=== PATIENT | female | born 1975 | race Caucasian/White ===

== ENCOUNTER 2021-03-13 14:06 | Emergency (ER) | payer OTHER ==
[~2021-03-13] VITALS: Ht 175.3 cm; Wt 90.9 kg
--- NOTE | 2021-03-13 15:35 | REP ---
INDICATION: CVA - Nursing interventions must not delay CT. COMPARISON: None. TECHNIQUE: CT brain performed in the axial plane. Coronal reconstruction images are performed. FINDINGS: The ventricles are normal in size and position.. There is no midline shift or mass effect. Vitale-white differentiation is well maintained. There is no acute intracranial hemorrhage or extra-axial fluid collection. However, there is a relatively moderate amount of subarachnoid air anteriorly throughout the interhemispheric fissure, in the suprasellar cistern, at the anterior base of the brain and left frontal region. Bone window examination is unremarkable. The visualized mastoid air cells and paranasal sinuses are clear. IMPRESSION: Moderate amount of anterior pneumocephalus in a subarachnoid location, reportedly secondary to epidural injection. No other acute finding. Incidental Findings: Anterior pneumocephalus in a subarachnoid location. The critical information above was relayed directly by me by telephone to ernie vitale on 03/13/2021 at 3:27 pm with readback verification. <Electronically signed by Andry Vitale > 03/13/21 [id number]
[2021-03-13 15:52] LABS: BASO % 0.1 % (0.0-1.0); EOS % 0.1 % (0.0-3.0); HEMATOCRIT 43.5 % (36.0-47.0); HEMOGLOBIN 14.7 g/dl (12.0-15.5); LYMPH # 0.5 10^3/uL (1.5-5.0); LYMPH % 5.1 % (24.0-44.0); MEAN CORPUSCULAR HEMOGLOBIN 30.8 pg (27.0-33.0); MEAN CORPUSCULAR HGB CONC 33.8 g/dl (32.0-36.5); MEAN CORPUSCULAR VOLUME 91.2 fl (80.0-96.0); MONO # 0.1 10^3/uL (0.0-0.8); MONO % 0.9 % (2.0-8.0); NEUTROPHILS # 8.9 10^3/uL (1.5-8.5); NEUTROPHILS % 93.3 % (36.0-66.0); PLATELET COUNT, AUTOMATED 265 10^3/uL (150-450); RED BLOOD COUNT 4.77 10^6/uL (4.00-5.40); WHITE BLOOD COUNT 9.5 10^3/uL (4.0-10.0)
[2021-03-13] MEDS ORDERED: PAME10CA PO (15:54)
[2021-03-13] MEDS ORDERED: XANA0.5T PO (15:54)
[2021-03-13 16:17] LABS: HCG, SERUM QUALITATIVE NEGATIVE (NEGATIVE)
[2021-03-13 16:22] LABS: CK-MB VALUE MASS < 1.0 NG/ML (<3.6); CPK CREATINE PHOSPHOKINASE 134 U/L (26-192); MB/CK RELATIVE INDEX 0.75 (< OR =4); TROPONIN I < 0.02 NG/ML (< 0.10)
--- NOTE | 2021-03-13 16:41 | REP ---
INDICATION: CVA. COMPARISON: None. TECHNIQUE: Single portable AP view of the chest was performed. FINDINGS: There is no acute infiltrate or pulmonary edema. Lungs are clear. The heart is not significantly enlarged. The mediastinal silhouette is unremarkable. The visualized osseous structures are intact.A stimulator device projects over the right hemithorax with a lead seen in the region of the lower cervical spine. IMPRESSION: No acute pulmonary disease. <Electronically signed by Andry Vitale > 03/13/21 [id number]
[2021-03-13] MEDS ORDERED: ONDANSETRON 4MG/2ML VIAL IV ONE (18:05)
[2021-03-13] MEDS ORDERED: fentaNYL 100 MCG/2 ML INJECTION (J3010) IV ONE (18:05)
--- NOTE | 2021-03-13 18:31 | REPVR ---
PROCEDURE INFORMATION: Exam: CT Cervical Spine Without Contrast Exam date and time: 03/13/2021 6:07 PM Age: 45 years old Clinical indication: Weakness; Prior surgery; Additional info: R/O hematoma, epidural injections today TECHNIQUE: Imaging protocol: Computed tomography images of the cervical spine without contrast. Radiation optimization: All CT scans at this facility use at least one of these dose optimization techniques: automated exposure control; mA and/or kV adjustment per patient size (includes targeted exams where dose is matched to clinical indication); or iterative reconstruction. COMPARISON: CT Head without contrast 03/13/2021 2:47 PM FINDINGS: Tubes, catheters and devices: Spinal stimulator leads demonstrated. Bones/joints: No acute fracture. Normal alignment. Discs/Spinal canal/Neural foramina: No significant disc protrusion. No severe spinal canal stenosis. No significant neural foraminal narrowing. Epidural space: Small locule of epidural gas demonstrate the level of the brainstem on the right likely postprocedural. No evidence of an epidural hematoma. Lungs: Lung apices are normal. Soft tissues: Air demonstrated in the posterior paraspinal soft tissues on the right likely postprocedural. Clinical correlation to exclude infection. IMPRESSION: 1. Air demonstrated in the posterior paraspinal soft tissues on the right likely postprocedural. Clinical correlation to exclude infection. 2. Small locule of epidural gas demonstrate the level of the brainstem on the right likely postprocedural. 3. No evidence of an epidural hematoma. 4. No fractures. Electronically signed by: Devyn Fitch On 03/13/2021 18:31:42 PM
--- NOTE | 2021-03-13 19:59 | ECGEPIP ---
[facility] - ED Test Date: 2021-03-13 Pat Name: EBENEZER BOLAÑOS Department: Room: - Gender: Female [employer] Technician: FARIHA : 1975 Requested By: ALEX Carpio PA-C Order Number: [id number] Reading MD: Ngoc Corrales Measurements Intervals [place] Rate: 61 P: 61 VA: 176 QRS: -14 QRSD: 88 T: 21 QT: 420 QTc: 422 Interpretive Statements Normal sinus rhythm Possible Left atrial enlargement Minimal voltage criteria for LVH, may be normal variant ( [place] product ) No prior Electronically Signed on 03-13-2021 19:59:43 EDT by Ngoc Corrales
[2021-03-13 20:30] LABS: RSV AMPLIFICATION NEGATIVE (NEGATIVE)
[2021-03-13 21:38] VITALS: BP 149/66
== END 2021-03-13 21:50 | disposition short-term general hospital (02) ==
LOC: EDBD 14:06 → M ED 14:06
DX: G81.91 Hemiplegia, unspecified affecting right dominant side (principal); G93.89 Other specified disorders of brain; F41.9 Anxiety disorder, unspecified; Z79.899 Other long term (current) drug therapy
CPT/HCPCS: 70450; 71045; 72125; 80047; 82550; 82553; 84484; 84702; 84703; 85025; 85730; 87631; 93005; 93041; 94760; 96361; 96374; 96375; 99285; J2405; J3010

== ENCOUNTER 2024-11-19 08:40 | Day surgery (SDC) | payer OTHER ==
[~2024-11-19] VITALS: Ht 165.1 cm; Wt 91.2 kg
[~2024-11-19 08:40] MED LIST: MIDAZOLAM INJ 2MG/2ML VIAL As Ordered ONE; PAME10CA PO; PHENYLEPHRINE 10% OPHTH SOL 5ML OS PRN; PROBCAP14 PO; THERTAB52 PO; XANA0.5T PO; fentaNYL 100 MCG/2 ML INJECTION As Ordered ONE
[2024-11-19] MEDS: CYCLOPENTOLATE 1% OPHTH SOLN 2ML BTL OS SCH (09:37)
[2024-11-19] MEDS: OFLOXACIN 0.3 % (OCUFLOX) OPTH SOL 5ML OS ONE (09:37)
[2024-11-19] MEDS: LIDOCAINE 3.5 % 1ML OPHTH TOPICAL GEL OU ONE (09:37)
[2024-11-19] MEDS: PHENYLEPHRINE 2.5% OPHTH SOL 2ML OS SCH (09:38)
[2024-11-19] MEDS: TROPICAMIDE 1% OPHTH SOLN 15ML OS SCH (09:38)
[2024-11-19] MEDS: CEFUROXIME 1MG/0.1ML INTRACAMERAL INJ As Ordered ONE (10:24)
[2024-11-19] MEDS: BSS IRRIG/VANCO(10MG)/TOBRA(5MG)/EPINEPH(1:1000-0.5CC)500ML BAG-ORONLY As Ordered ONE (10:24)
[2024-11-19] MEDS: LIDOCAINE 1% SDV 5ML VIAL As Ordered ONE (10:24)
[2024-11-19] MEDS ORDERED: ONDANSETRON 4MG 2ML VIAL IV PRN (11:00)
[2024-11-19] MEDS ORDERED: LR 1,000 ML IV ONE (11:05)
[2024-11-19 12:53] VITALS: BP 122/57; TEMP 97.6; O2SAT 100
== END 2024-11-19 12:56 | disposition home or self-care (01) ==
LOC: M SDC 08:40
PROVIDERS: ATTEND Ophthalmology
DX: H25.12 Age-related nuclear cataract, left eye (principal); Z90.710 Acquired absence of both cervix and uterus; Z88.8 Allergy status to other drugs, medicaments and biological substances
CPT/HCPCS: 66984; J0697; J2250; J3010; V2632